=== PATIENT | female | born 1995 | race Caucasian/White ===

== ENCOUNTER 2021-03-05 15:11 | Emergency (ER) | payer BC ==
[2021-03-05] MEDS ORDERED: Cyclobenzaprine 10 MG TAB ONE (18:58)
[2021-03-05] MEDS ORDERED: Ketorolac Tromethamine 30 MG/ML VIAL ONE (18:58)
== END 2021-03-05 19:45 | disposition home or self-care (01) ==
LOC: ERS 15:11
DX: S00.93XA Contusion of unspecified part of head, initial encounter (principal); S16.1XXA Strain of muscle, fascia and tendon at neck level, initial encounter; W21.04XA Struck by golf ball, initial encounter; Y93.53 Activity, golf
CPT/HCPCS: 70450; 72125; 96372; J1885